=== PATIENT | male | born 1945 | race Caucasian/White ===

== ENCOUNTER 2019-08-25 05:29 | Inpatient (IN) | payer MEDICARE ==
--- NOTE | 2019-08-22 14:00 | HP ---
HISTORY AND PHYSICAL: DATE OF ADMISSION/SURGERY: 08/25/19 PROVIDER: Dr. Dianelys Varma.* (DICTATED BY ALIRIO HERNANDEZ) HISTORY OF PRESENT ILLNESS: Mr. Downey is a 74-year-old gentleman, who has had left hip pain over the past several years. For the last year, it has gotten worse and is now daily 6/10 throbbing pain in the hip. He has anterior groin pain also. He had his right hip replaced over 20 years ago and this one is doing well. He states he has trouble with ambulating more than a block. He has tried to use a cane as well as physical therapy, home exercise and pain medication without help. He would like to proceed with a left total hip arthroplasty at this point. PAST MEDICAL HISTORY: 1. Osteoarthritis. 2. Hypothyroidism. 3. Anemia. PAST SURGICAL HISTORY: 1. Right total hip arthroplasty in 1996. 2. Left total knee arthroplasty in 2016. 3. Eye surgery, unspecified type. 4. Appendectomy. 5. Hernia repair x2. 6. Bone chip removed from the right knee in 1989. MEDICATIONS: 1. Zoë. 2. Amoxicillin. 3. Iron 325. 4. Levothyroxine 50 mcg. ALLERGIES: No known drug allergies. SOCIAL HISTORY: The patient lives with his . 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 He denies any tobacco, alcohol, or recreational drug use. He is an independent ambulator normally, but uses a cane for the past few nights. REVIEW OF SYSTEMS: General: The patient denies any fevers, chills, or night sweats. No known anesthesia problems. HEENT: The patient denies any headaches , lightheadedness, or syncopal episodes. Cardiothoracic: The patient denies any chest pain or heart palpitations. Pulmonary: The patient denies any shortness of breath or chronic cough. GI: The patient denies any nausea, vomiting, diarrhea, or constipation. : The patient denies any nocturia, urinary frequency, or urgency. MSK: The patient denies any intermittent back pain or fractures. Neuro: The patient denies any paresthesias, numbness, or seizures. Integument: The patient denies any abrasions, lesions, rashes, lumps , or open sores. PHYSICAL EXAMINATION GENERAL: The patient is alert and oriented x3. Appropriate mood and affect. Appropriate dress and hygiene. Antalgic gait. HEENT: Normocephalic, atraumatic. Hearing and vision are grossly intact. PULMONARY: Lungs are clear to auscultation bilaterally with no wheezes, rales, or rhonchi. CARDIO: Regular rate and rhythm. Normal S1 and S2. No murmurs, rubs, or gallops. MUSCULOSKELETAL: Left lower extremity: Inspection of the left hip reveals no erythema or ecchymosis. Skin is warm, dry, and intact. Range of motion of the hip is 80 degrees of flexion with severe groin pain. 20 degrees from neutral and no internal rotation. He has negative log roll, negative straight leg raise. Full sensation intact to light touch with a 2+ DP pulse. IMPRESSION: Left hip severe end-stage osteoarthritis. PLAN: 1. To the OR for a left total hip arthroplasty to be performed by Dr. Dianelys Varma on 08/25/19. 2. The patient is to follow up 10 to 14 days postop for suture removal and followup. 3. The risks and complications of surgery were reviewed with the patient and he understood these. A signed consent was obtained and placed in the chart. ALIRIO HERNANDEZ [id number]/ROSEMARY #: [id number] ALAINA
[~2019-08-25 05:29] MED LIST: Buffered Lidocaine 1% SYRIN* 1 ML/SYRINGE INTRADERM ONE; Tranexamic Acid 1,000 MG in NS 0.9% 50 ML* (outpatient use) IV SCH
--- OUTSIDE RECORDS SUMMARY | 2019-08-25 05:31 | XMS REPORT | Continuity of Care Document ---
:1945 External Reference #:[id number] Author Name Dianelys Varma M.D. 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 Onset: 11/24/2012 Arthroplasty of knee Dianelys Varma M.D. Onset: 07/22/2019 Prosthetic arthroplasty of the hip Dianelys Varma M.D. Onset: 07/22/2019 Localized, primary osteoarthritis of the Dianelys Varma M.D. Onset: 07/22/2019 pelvic region and thigh Localized, primary osteoarthritis Dianelys Varma M.D. Onset: 07/22/2019 Social History Type Date Description Comments Sex Unknown ETOH Use Denies alcohol use Tobacco Use Start: Unknown Patient has never smoked Smoking Status Reviewed: 08/17/19 Patient has never smoked Exercise Type/Frequency Exercises sporadically Allergies, Adverse Reactions, Alerts Description No Known Drug Allergies Medications Active Medications SIG Qnty Indications Ordering Provider Date Zoë 1 po qd prn 30tabs Unknown 180mg Tablets Amoxicillin 4 tablets 1 hour 16caps Unknown 500mg before dental Capsules work Iron 1 by mouth every Unknown 325(65Fe) mg Tablets day Levothyroxine Sodium 1 by mouth every Unknown day 50mcg Tablets Immunizations Description No Information Available Vital Signs Date Vital Result Comment 08/17/2019 10:04am Height 68 inches 5'8" Weight 189.00 lb Heart Rate 77 /min BP Systolic 130 mmHg BP Diastolic 72 mmHg Respiratory Rate 16 /min Body Temperature 98.5 F Pain Level 4 BMI (Body Mass Index) 28.7 kg/m2 07/22/2019 2:21pm Height 68 inches 5'8" Weight 187.00 lb BP Systolic 142 mmHg BP Diastolic 90 mmHg Respiratory Rate 18 /min Body Temperature 98.5 F Pain Level 6 BMI (Body Mass Index) 28.4 kg/m2 Results Test Date Facility Test Result H/L Range Note CBC No Diff 08/17/2019 [facility] White Blood 7.8 10^3/uL Normal 3.5-10.[address] [place] [address] [phone] Red Blood Count 4.71 10^6/uL Normal 4.18-5.48 Hemoglobin 13.3 g/dL Low 14.0-18.0 Hematocrit 40 % Low 42-52 Mean Corpuscular Volume 85 fL Normal 80-94 Mean Corpuscular Hemoglobin 28 pg Normal 27-31 Mean Corpuscular HGB Conc 33 g/dL Normal 31-36 Red Cell Distribution Width 15 % Normal 10-15 Platelet Count 295 10^3/uL Normal 150-450 Mean Platelet Volume 8.2 fL Normal 7.4-10.4 1 AA 08/25 Procedures Description No Information Available Medical Devices Description No Information Available Encounters Type Date Location Provider Dx Diagnosis Office Visit 07/22/2019 [facility] Dianelys Varma, M25.561 Pain in right 1:45p at [place] knee M25.461 Effusion, right knee M17.11 Unilateral primary osteoarthritis, right knee M25.552 Pain in left hip M16.12 Unilateral primary osteoarthritis, left hip Z96.641 Presence of right artificial hip joint Z96.652 Presence of left artificial knee joint Assessments Date Code Description Provider 07/22/2019 M25.561 Pain in right knee Dianelys Varma M.D. 07/22/2019 M25.461 Effusion, right knee Dianelys Varma M.D. 07/22/2019 M17.11 Unilateral primary osteoarthritis, right knee Dianelys Varma M.D. 07/22/2019 M25.552 Pain in left hip Dianelys Varma M.D. 07/22/2019 M16.12 Unilateral primary osteoarthritis, left hip Dianelys Varma M.D. 07/22/2019 Z96.641 Presence of right artificial hip joint Dianelys Varma M.D. 07/22/2019 Z96.652 Presence of left artificial knee joint Dianelys Varma M.D. Plan of Treatment Future Appointment(s):09/09/2019 8:45 am - [facility]/2019 7:45 am - Shashank Smith PA-C at [facility] at Mqvpgz1108/25/2019 7:45 am - ALIRIO Teague at [facility] at Hshimy2108/25/2019 7:45 am - Dianelys Varma M.D. at [facility] Functional Status Description No Information Available Mental Status Description No Information Available Referrals Description No Information Available
--- OUTSIDE RECORDS SUMMARY | 2019-08-25 05:31 | XMS REPORT | Continuity of Care Document ---
:1945 External Reference #:[id number] Author Name Dianelys Varma M.D. 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/25/2019 7:45 am - Shashank Smith PA-C at [facility] at Pdblqr3508/25/2019 7:45 am - ALIRIO Teague at [facility] at Rjwbwi7608/25/2019 7:45 am - Dianelys Varma M.D. at [facility] Functional Status Description No Information Available Mental Status Description No Information Available Referrals Description No Information Available
--- OUTSIDE RECORDS SUMMARY | 2019-08-25 05:31 | XMS REPORT | Continuity of Care Document ---
:1945 External Reference #:[id number] Author Name Dianelys Varma M.D. 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 Problems Provider Date Syncope and [...] Patient has never smoked Smoking Status Reviewed: 07/22/19 Patient has never smoked Exercise Type/Frequency Exercises [...] Available Vital Signs Date Vital Result Comment 07/22/2019 2:21pm Height 68 inches 5'8" Weight 187.00 lb BP Systolic 142 mmHg BP Diastolic 90 mmHg Respiratory Rate 18 /min Body Temperature 98.5 F Pain Level 6 BMI (Body Mass Index) 28.4 kg/m2 11/24/2012 10:12am Height 68 inches 5'8" Weight 194.75 lb Heart Rate 68 /min Regular BP Systolic Sitting 150 mmHg BP Diastolic Sitting 94 mmHg BMI (Body Mass Index) 29.6 kg/m2 Results Description No Information Available Procedures Description No Information Available Medical Devices Description No Information Available Encounters Description No Information Available Assessments Date Code Description Provider 07/22/2019 M25.561 [...] joint Dianelys Varma M.D. Plan of Treatment 07/22/2019 - Dianelys Varma M.D.M25.561 Pain in right kneeNew Xrays:Knee 3 Views RT, Ordered: 07/22/19Follow up:Follow up: 7-10 days before yeoumgaH34.461 Effusion, right kneeM17.11 Unilateral primary osteoarthritis, right kneeM25.552 Pain in left hipNew Xrays:Hip Left 2 Views And Pelvis [address], Ordered: M16.12 Unilateral primary osteoarthritis, left hipZ96.641 Presence of right artificial hip xyxcnK19.652 Presence of left artificial knee joint Functional Status Description No Information Available Mental Status Description No Information Available Referrals Description No Information Available
--- OUTSIDE RECORDS SUMMARY | 2019-08-25 05:31 | XMS REPORT | Continuity of Care Document ---
:1945 External Reference #:[id number] Author Name Jovani Donohue M.D. 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4 Comp Metabolic 08/17/2019 [facility] Sodium 137 mmol/L Normal 135-[address] [place] [address] [phone] Potassium 4.5 mmol/L Normal 3.5-5.0 Chloride 101 mmol/L Normal 101-111 Co2 Carbon Dioxide 28 mmol/L Normal 22-32 Anion Gap 8 mmol/L Normal 2-11 Glucose 82 mg/dL Normal 70-100 Blood Urea Nitrogen 15 mg/dL Normal 6-24 Creatinine 0.97 mg/dL Normal 0.67-1.17 BUN/Creatinine Ratio 15.5 Normal 8-20 Calcium 9.3 mg/dL Normal 8.6-10.3 Total Protein 7.4 g/dL Normal 6.4-8.9 Albumin 4.5 g/dL Normal 3.2-5.2 Globulin 2.9 g/dL Normal 2-4 Albumin/Globulin Ratio 1.6 Normal 1-3 Total Bilirubin 0.50 mg/dL Normal 0.2-1.0 Alkaline Phosphatase 85 U/L Normal 34-104 Alt 19 U/L Normal 7-52 Ast 17 U/L Normal 13-39 Egfr Non- 75.5 >60 Egfr 91.3 >60 2 Lipid Profile 08/17/2019 [facility] Triglycerides 325 mg/dL 3 (Trig/Chol/HDL) [address] [place] [address] [phone] Cholesterol 191 mg/dL 4 HDL Cholesterol 35.6 mg/dL 5 LDL Cholesterol 90 mg/dL 6 Laboratory 08/17/2019 [facility] TSH (Thyroid 4.58 Normal 0.34 -5.60 7 test finding [address] Stim Horm) mcIU/[place] [address] [phone] Free T4 (Free Thyroxine) 0.70 ng/dL Normal 0.61-1.12 8 1 08/25 2 Because ethnic data is not always readily available, this report includes an eGFR for both -Americans and non- Americans. The National Kidney Disease Education Program (NKDEP) does not endorse the use of the MDRD equation for patients that are not between the ages of 18 and 70, are , have extremes of body size, muscle mass, or nutritional status, or are non- or non-. According to the National Kidney Foundation, irrespective of diagnosis, the stage of the disease is based on the level of kidney function: Stage Description GFR(mL/min/1.73 m(2)) 1 Kidney damage with normal or decreased GFR 90 2 Kidney damage with mild decrease in GFR 60-89 3 Moderate decrease in GFR 30-59 4 Severe decrease in GFR 15-29 5 Kidney failure <15 (or dialysis) 3 Desirable: <150 Borderline High: 150-199 High: 200-499 Very High: >500 4 Desirable: <200 Borderline High: 200-239 High: >239 5 Low: <40 Desirable: 40-60 High: >60 6 Desirable: <100 Near Optimal: 100-129 Borderline High: 130-159 High: 160-189 Very High: >189 7 08/25 8 08/25 Procedures Description No Information Available Medical Devices Description No Information Available Encounters Type Date Location Provider Dx Diagnosis Office Visit 07/22/2019 [facility] Dianelys Varma, M25.561 [facility] Effusion, right knee M17.11 Unilateral [...] M.D. 07/22/2019 M25.552 Pain in left hip Dianelyslisa Varma M.D. 07/22/2019 M16.12 Unilateral primary osteoarthritis, left hip Dianelys Varma M.D. 07/22/2019 Z96.641 Presence of right artificial hip joint Dianelys Varma M.D. 07/22/2019 Z96.652 Presence of left artificial knee joint Dianelys Varma M.D. Plan of Treatment Future Appointment(s):09/09/2019 8:45 am - [facility] 7:45 am - [facility]/25/2019 7:45 am - [facility]/2019 7:45 am - [facility] Functional Status Description No Information Available Mental Status Description No Information Available Referrals Description No Information Available
--- OUTSIDE RECORDS SUMMARY | 2019-08-25 05:31 | XMS REPORT | Continuity of Care Document ---
:1945 External Reference #:[id number] Author Name Luiz Adamson M.D. Address [address] [place] [address] Care Team Providers Name Role Phone Elizabeth Davey - Cardiovascular Care Team Information Saw Setter [phone] [facility] - Care Team Information Saw Setter [phone] Gastroenterology Luiz Adamson MD - Family Medicine Care Team Information Saw Setter [phone] Problems Active Problems Provider Date Benign prostatic hypertrophy without outflow Luiz Adamson M.D. Onset: obstruction Family history of ischemic heart disease Luiz Adamson M.D. Onset: 2010 Hypothyroidism Luiz Adamson M.D. Onset: 09/14/2014 Anemia Luiz Adamson M.D. Onset: 09/14/2014 Mixed hyperlipidemia Luiz Adamson M.D. Onset: 03/20/2015 Immunization Luiz Adamson M.D. Onset: 12/04/2016 Edema Luiz Adamson M.D. Onset: 02/10/2017 Palpitations Luiz Adamson M.D. Onset: 02/10/2017 Degenerative joint disease involving Luiz Adamson M.D. Onset: 12/01/2017 multiple joints Encounter for other preprocedural Luiz Adamson M.D. Onset: 08/04/2019 examination Social History Type Date Description Comments Sex Unknown Tobacco Use Start: Unknown Nonsmoker ETOH Use Denies alcohol use Tobacco Use Start: Unknown Patient has never smoked Smoking Status Reviewed: 11/23/17 Patient has never smoked Allergies, Adverse Reactions, Alerts Description No Known Drug Allergies Medications Active Medications SIG Qnty Indications Ordering Provider Date Synthroid Take 1 Tablet By 90tabs Luiz AishaIsha Vikramken, 09/14/2014 50mcg Tablets Mouth Every Day M.Lester Zoë Take 1 Tablet By 30tabs Rebecca Ibarra, 04/03/2006 180mg Tabs Mouth Daily prn Afnp-C Iron Supplement 1 by mouth once Luiz F. Snow, a day M.D. 325(65Fe) mg Tablets Ventolin HFA 2 puffs every 4 Luiz F. Shallish, hours as needed M.D. 108(90Base) mcg/Act Aerosol Immunizations CPT Code Status Date Vaccine Lot # [id number] Given 08/01/2019 Influenza Vac, Quadriv[place], [place] [address] Given 08/05/2018 High-Dose, Influenza Virus Vacccine-fluzone 65 and [id number] older 40106 Given 12/04/2016 Tdap Tetanus, W Pertussis [id number] 82744 Given 09/20/2015 Pneumococcal Conjugate Vacc-13 [id number] 38106 Given 09/20/2015 High-Dose, Influenza Virus Vacccine-fluzone 65 and [id number] older 46782 Given 09/14/2014 High-Dose, Influenza Virus Vacccine-fluzone 65 and [id number] older [id number] Given 11/02/2012 Split Influenza Medicare: Fluvirin 26498 Given 11/02/2012 DO Not Use Split Influenza Virus Vaccine [id number] 02127 Given 10/23/2011 Pneumococcal Immunization [id number] 97276 Given 07/14/2011 Tetanus And Diptheria Adult Preservative Free [id number] >7Yrs 64384 Given 09/23/2008 DO Not Use Split Influenza Virus Vaccine [id number] 58504 Given 10/04/2007 DO Not Use Split Influenza Virus Vaccine [id number] 98148 Given 09/22/2006 DO Not Use Split Influenza Virus Vaccine 67259 Given 05/20/2003 Td Immunization, For Use In Individuals 7 Years Or Older 89289 Given 05/20/2003 DT Immunization Vital Signs Date Vital Result Comment 08/04/2019 8:20am BP Systolic 126 mmHg BP Diastolic 76 mmHg Heart Rate 72 /min Body Temperature 97.9 F Respiratory Rate 16 /min Height 66 inches 5'6" Weight 189.00 lb BMI (Body Mass Index) 30.5 kg/m2 01/27/2019 9:47am BP Systolic 122 mmHg BP Diastolic 78 mmHg Heart Rate 68 /min Body Temperature 97.9 F Respiratory Rate 16 /min Height 66 inches 5'6" Weight 194.00 lb BMI (Body Mass Index) 31.3 kg/m2 Results Test Date Facility Test Result H/L Range Note Ict-Hemoccult 08/01/2019 [facility] Ict Hemoccult 07/28/19 Neg. (MCR)Fma (607)- - (1) Screeni Ict Hemoccult-(2) 07/29/19 Neg. Ict-Hemoccult (3) 07/30/19 Neg. Procedures Date Code Description Status 02/01/2014 [id number] Colonoscopy Completed Medical Devices Description No Information Available Encounters Description No Information Available Assessments Date Code Description Provider 08/04/2019 E03.9 Hypothyroidism, unspecified Luiz Adamson M.D. 08/04/2019 M15.0 Primary generalized (osteo)arthritis Luiz Adamson M.D. 08/04/2019 Z01.818 Encounter for other preprocedural Luiz Adamson M.D. examination 08/01/2019 Z12.11 Encounter for screening for malignant Luiz Adamson M.D. neoplasm of colon 08/01/2019 Z12.12 Encounter for screening for malignant Luiz Admason M.D. neoplasm of rectum Plan of Treatment 08/04/2019 - Luiz Adamson M.D.E03.9 Hypothyroidism, unspecifiedNew Labs: TSH ([facility]), Ordered: 08/04/19Free T4 ([facility]), Ordered: Comments:continue present medication , recheck thyroid lab workFollow up: Followup:. (Follow up)M15.0 Primary generalized (osteo)arthritisNew Labs:CBC Electronic-[facility], Ordered: 08/04/19Lipid Panel And Chol/HDL Ratio, Ordered: 08/04/19Comp Metabolic-[facility], Ordered: 08/04/19Comments:I feel he is medically clear for the planned left hip replacement by Dr Malik01.818 Encounter for other preprocedural examinationAllFollow up:return to office for cpe in spring Functional Status Description No Information Available Mental Status Description No Information Available Referrals Description No Information Available
--- OUTSIDE RECORDS SUMMARY | 2019-08-25 05:31 | XMS REPORT | Continuity of Care Document ---
:1945 External Reference #:[id number] Author Name Dianelys Varma M.D. 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 Room Clerk [phone] Problems Active Problems Provider Date Syncope and [...] H/L Range Note CBC No Diff 08/17/2019 [facility] White Blood 7.8 10^3/uL Normal 3.5-10.[address] [place] [address] [phone] Red Blood Count 4.71 10^6/uL Normal 4.18-5.48 Hemoglobin 13.3 g/dL Low 14.0-18.0 Hematocrit 40 % Low 42-52 Mean Corpuscular Volume 85 fL Normal 80-94 Mean Corpuscular Hemoglobin 28 pg Normal 27-31 Mean Corpuscular HGB Conc 33 g/dL Normal 31-36 Red Cell Distribution Width 15 % Normal 10-15 Platelet Count 295 10^3/uL Normal 150-450 Mean Platelet Volume 8.2 fL Normal 7.4-10.4 Comp Metabolic 08/17/2019 [facility] Sodium 137 mmol/L Normal 135-[address] [place] [address] [phone] Potassium 4.5 mmol/L Normal 3.5-5.0 Chloride 101 [...] Egfr 91.3 >60 2 Lipid Profile 08/17/2019 [facility] Triglycerides 325 mg/dL 3 (Trig/Chol/HDL) [address] [place] [address] [phone] Cholesterol 191 mg/dL 4 HDL Cholesterol 35.6 mg/dL 5 LDL Cholesterol 90 mg/dL 6 Laboratory 08/17/2019 [facility] TSH (Thyroid 4.58 Normal 0.34 -5.60 7 test finding [address] Stim Horm) mcIU/[place] [address] [phone] Free T4 (Free Thyroxine) 0.70 ng/dL Normal [...] Location Provider Dx Diagnosis Office Visit 07/22/2019 [facility] Dianelys Varma, M25.561 Pain in right 1:45p at [place] Desiree knee M25.461 Effusion, right knee M17.11 [...] 07/22/2019 M17.11 Unilateral primary osteoarthritis, right knee Dianelyslisa Varma M.D. 07/22/2019 M25.552 Pain in left hip Dianelys Varma M.D. 07/22/2019 M16.12 Unilateral primary osteoarthritis, left hip Dianelys Varma M.D. 07/22/2019 Z96.641 Presence of right artificial hip joint Dianelys Varma M.D. 07/22/2019 Z96.652 Presence of left artificial knee joint Dianelys Varma M.D. Plan of Treatment Future Appointment(s):09/09/2019 8:45 am - Dianelys Varma M.D. at [facility]08/25/2019 7:45 am - hSashank Smith PA-C at [facility]08/25/2019 7:45 am - ALIRIO Teague at [facility]08/25/2019 7:45 am - [facility] Functional Status Description No Information Available Mental Status Description No Information Available Referrals Description No Information Available
[2019-08-25] MEDS ORDERED: Dexamethasone IV* 4 MG/ML 1 ML (4 MG) IV SLOW PU ONE (06:00)
[2019-08-25] MEDS ORDERED: Gabapentin CAP(*) 300 MG PO ONE (06:00)
[2019-08-25] MEDS ORDERED: Lactated Ringers 1000 ML Bag* 1,000 ML IV SCH (06:00)
[2019-08-25] MEDS ORDERED: Famotidine IV* 10 MG/ML 2 ML (20 mg) IV ONE (06:00)
[2019-08-25] MEDS ORDERED: celeCOXIB CAP* 200 MG PO ONE (06:00)
[2019-08-25] MEDS ORDERED: Dexamethasone IV* 4 MG/ML 1 ML (4 MG) ONE (06:10)
[2019-08-25] MEDS ORDERED: Famotidine IV* 10 MG/ML 2 ML (20 mg) ONE (06:10)
[2019-08-25] MEDS ORDERED: celeCOXIB CAP* 200 MG ONE (06:10)
[2019-08-25] MEDS ORDERED: Gabapentin CAP(*) 300 MG ONE (06:10)
[2019-08-25] MEDS ORDERED: ceFAZolin 2 GM in NS PREMIX(*) 2 GM/100 ML BAG IVPB ONE (06:11)
[2019-08-25 07:00] LABS: INR 0.99 (0.82-1.09)
[2019-08-25] MEDS ORDERED: KETAMINE HCL* 50 MG/ML 10 ML VIAL ONE (07:15)
[2019-08-25] MEDS ORDERED: Midazolam* 1 MG/ML 5 ML VIAL (5 MG) ONE (07:16)
[2019-08-25] MEDS ORDERED: Ondansetron INJ* 2 MG/ML VIAL IV PRN ×2 (07:30→09:07)
[2019-08-25] MEDS ORDERED: HYDROmorphone INJ1* 1 MG/ML SYRINGE IV PRN (07:30)
[2019-08-25] MEDS ORDERED: Naloxone* 0.4 MG/ML 1 ML VIAL IV PRN (07:30)
[2019-08-25] MEDS ORDERED: Phenylephrine 10 MG/ML VIAL* 1 ML VIAL ONE (08:23)
[2019-08-25] MEDS ORDERED: Bupivacaine 0.5% SDV PF* 30ML VIAL ONE (08:49)
[2019-08-25] MEDS ORDERED: Propofol* 10 MG/ML 20 ML BTL ONE ×2 (08:50→09:47)
[2019-08-25] MEDS ORDERED: EPHEDrine (Pressors)* 50 MG/ML VIAL ONE (09:04)
[2019-08-25] MEDS ORDERED: Ondansetron TAB* 4 MG PO PRN (09:07)
[2019-08-25] MEDS ORDERED: diPHENhydraMINE PO* 25 MG PO PRN (09:07)
[2019-08-25] MEDS ORDERED: Ondansetron ODT TAB* 4 MG PO PRN (09:07)
[2019-08-25] MEDS ORDERED: traMADol TAB* 50 MG PO PRN (09:07)
[2019-08-25] MEDS ORDERED: oxyCODONE TAB* 5 MG TAB PO PRN (09:07)
[2019-08-25] MEDS ORDERED: Cyclobenzaprine TAB* 10 MG PO PRN (09:07)
[2019-08-25] MEDS ORDERED: Morphine INJ* 2 MG/ML 1 ML SYRINGE (TWO MG - NEW SYRINGE VERSION) IV PRN (09:07)
[2019-08-25] MEDS ORDERED: Polyethylene Glycol 3350* 17 GM PACKET PO PRN (09:07)
[2019-08-25] MEDS ORDERED: diPHENhydraMINE IV* 50 MG/ML 1 ml VIAL (BENADRYL) IV PRN (09:07)
[2019-08-25] MEDS ORDERED: Magnesium Hydroxide LIQ* 30 ML UDC PO PRN (09:07)
[2019-08-25] MEDS: Lactated Ringers 1000 ML Bag* 1,000 ML IV SCH ×2 (11:53→23:16)
[2019-08-25] MEDS: oxyCODONE/Acetamin 5/325 MG* TAB PO PRN (14:11)
[2019-08-25] MEDS: Acetaminophen TAB* 325 MG PO SCH ×2 (14:12→21:20)
--- NOTE | 2019-08-25 16:06 | OP ---
Operative Report - Blank - Operative Report Date of Operation: 08/25/19 Note: SANTI LOPEZ 1945 Date Of Surgery: 08/25/19 Dianelys Varma MD Wreath Maker: Althea AMEZQUITA did help throughout the procedure with preparation of the hip, wound retraction, manipulation of the hip, and wound closure. Anesthesiologist: Dr. Hicks Anesthesia Type: Spinal Preoperative Diagnosis: Left severe degenerative osteoarthritis of the hip Postoperative Diagnosis: As above Procedure Performed: Left Total Hip Arthroplasty Complications: None Specimen: Femoral head and acetabular reamings sent to pathology. Hardware used: This is uncemented Carine total hip arthroplasty hardware for the femur a size 8 accolade Ii with 127 neck angle femoral component, for the acetabulum a size 52E trident II tritanium cluster hole shell, for the insert a size 36E trident X3 polyethylene insert, and for the femoral head a size 36 - 2.5 ceramic V40 femoral head. Brief history/Indication: SANTI LOPEZ was known in clinic and had a history of severe left hip pain. He failed conservative treatment with anti-inflammatories , pain pills, intra-articular injections and physical therapy. He elected to undergo left total hip arthroplasty due to continued pain and decreased quality of life. Radiographs showed severe end stage osteoarthritis of the hip with bone on bone contact. Informed consent was obtained from the patient. He understood the risks of surgery included but were not limited to: bleeding, infection, damage to nearby structures, intraoperative fracture, nerve palsy, failure of the hardware, early loosening, stiffness or loss of motion, dislocation, leg length discrepancy, anesthesia complications, stroke, heart attack, blood clot and . He wished to proceed. Intra-Operative findings: Intraoperatively the patient was noted to have severe loss of cartilage of the acetabulum and femoral head. Description of the Procedure: SANTI LOPEZ was identified in the preanesthesia unit. His left hip was marked as the correct operative side. Informed consent was signed and placed in the chart. The patient was taken to the operating room and placed under anesthesia without complication. A barnett catheter was placed. The patient was placed on the peg board with all bony prominences well padded. The left lower extremity was prepped and draped in the usual sterile fashion. Preoperative time-out was made to correctly identify the patient, side and site. Appropriate intraoperative antibiotics were given within one hour of incision. A standard posterior incision was made and carried sharply down to the lateral fascia. A new 10 blade was used to make an incision in the fascia in line with the skin incision. A charnley retractor was placed. The piriformis and conjoined tendons were identified and elevated off the posterolateral femur using electrocautery. These were tagged with number 5 Ethibond. Next electrocautery was used to make a posterolateral capsular flap and this was tagged with number 5 Ethibonds. The hip was carefully dislocated. Lesser trochanter to the center of the femoral head was measured at 65 mm. The oscillating saw was used to make the femoral neck cut. The femoral head was carefully removed. The femur was retracted anteriorly and the acetabular retractors were placed. Long-handled knife was used to sharply remove any remaining labrum from the acetabular rim. The acetabulum was sequentially reamed up to a size 52. A bleeding subchondral bone bed was obtained. A trial liner was placed and had excellent fit and stability. A 52E cup with a 20 mm and 15 mm screw was placed and had excellent stability with appropriate anteversion and abduction angle. A size 36 E polyethylene liner was impacted into the acetabular shell. The liner was checked for stability and was stable. Next attention was turned to preparation of the femoral canal. A canal finder was used to enter the proximal femur. The femoral canal was sequentially broached up to a size 8 femoral broach trial. A trial neck and 36 - 2.5 trial femoral head was chosen. Lesser trochanter to center of the femoral head measurement was satisfactory. The hip was reduced and taken through a range of motion. The hip was stable in all positions with good soft tissue tension and appropriate leg lengths. The hip was dislocated and all trials were removed. The final implant chosen was a accolade II size 8 with 127 neck angle. This stem was impacted into the femoral canal without difficulty. The stem was stable with appropriate anteversion. The femoral head chosen was a 36 - 2.5 ceramic head. The head was impacted onto the femoral neck without difficulty. The final lesser trochanter to center of the femoral head measurement was satisfactory. The hip was reduced and taken through a range of motion. The hip was stable in all positions with good soft tissue tension and appropriate leg lengths. The hip was copiously irrigated with sterile saline. The previously tagged capsule and tendons were repaired to the posterolateral femur through two trochanteric drill holes. The lateral fascia layer was closed using number 1 vicryls. The rest of the incision was closed in a layered fashion using 0 and 2-0 vicryls. The skin was closed using 3-0 monocryl suture and Dermabond. Sterile adaptic, 4x4s and paper tape was used to cover the incision. The patients anesthesia was reversed without difficulty. He was taken to the PACU in stable condition. Intended weight-bearing will be as tolerated with posterior hip precautions.
--- NOTE | 2019-08-25 16:23 | PN ---
Progress Note - Progress Note Date of Service: 08/25/19 SOAP: Subjective: [Pt was seen today sitting up in chair. States he feels well. Pain is well controlled with percocet. He states that he was able to get up and walk to the bathroom with PT today. He denies any shortness of breath, chest pain. ] Objective: [Doing well. Appropriate mood, affect, dress and hygiene. +df/pf. Dressing c/d/i] Vital Signs Temp 97.6 F 08/25/19 14:18 Pulse 89 08/25/19 14:18 Resp 18 08/25/19 15:24 BP 154/77 08/25/19 14:18 Pulse Ox 99 08/25/19 14:18 Intake & Output 08/24/19 08/25/19 08/25/19 18:59 06:59 18:59 Intake Total 1490 Output Total 400 Balance 1090 Weight 190 lb Intake: IV Fluids 1350 LR 1350 Oral 140 Output: Urine 400 Assessment: [POD 0 LTHA ] Plan: [Start post op abx PT to continue tomorrow Percocet for pain management. ]
[2019-08-25] MEDS: ceFAZolin 1 GM ADVAN(*) 1 GM in NS 0.9% 50 ML* 50 ML IVPB SCH (17:55)
[2019-08-25] MEDS: Magnesium Hydroxide LIQ* 30 ML UDC PO SCH (21:17)
[2019-08-25] MEDS: Docusate CAP* 100 MG PO SCH (21:18)
[2019-08-26] MEDS: ceFAZolin 1 GM ADVAN(*) 1 GM in NS 0.9% 50 ML* 50 ML IVPB SCH ×2 (00:30→08:02)
[2019-08-26] MEDS ORDERED: Levothyroxine TAB* 50 MCG TAB PO SCH (06:00)
[2019-08-26] MEDS: oxyCODONE/Acetamin 5/325 MG* TAB PO PRN ×2 (06:05→11:28)
[2019-08-26] MEDS: Acetaminophen TAB* 325 MG PO SCH ×2 (06:23→14:18)
[2019-08-26 06:54] LABS: Hematocrit 33 % (42-52); Hemoglobin 11.2 g/dL (14.0-18.0); Mean Platelet Volume 7.7 fL (7.4-10.4); Platelet Count 223 10^3/uL (150-450)
[2019-08-26 07:09] LABS: BUN/Creatinine Ratio 18.4 (8-20); Calcium 8.6 mg/dL (8.6-10.3); Potassium 4.7 mmol/L (3.5-5.0)
[2019-08-26] MEDS: Magnesium Hydroxide LIQ* 30 ML UDC PO SCH (08:02)
[2019-08-26] MEDS: Docusate CAP* 100 MG PO SCH (08:02)
[2019-08-26] MEDS ORDERED: Apixaban* 2.5 MG TAB PO SCH (09:00)
[2019-08-26] MEDS ORDERED: Vitamin THERAPEUTIC TAB PO SCH (09:00)
--- NOTE | 2019-08-26 11:45 | PN ---
Progress Note - Progress Note Date of Service: 08/26/19 SOAP: Subjective: Pt was seen today sitting up in chair. States he feels well. Pain is well controlled with percocet. He states that he did well with PT today. He denies any shortness of breath, chest pain. ] Objective: [Doing well. Appropriate mood, affect, dress and hygiene. +df/pf. Dressing c/d/i, dressing changed today. Incision is c/d/i with no erythema or discharge. Calf is soft and non tender. NVI. ] Vital Signs Temp 97.8 F 08/26/19 08:16 Pulse 68 08/26/19 08:16 Resp 18 08/26/19 11:28 BP 126/72 08/26/19 08:16 Pulse Ox 98 08/26/19 08:16 Intake & Output 08/25/19 08/26/19 08/26/19 18:59 06:59 18:59 Intake Total 1490 1530 1060 Output Total 400 2700 Balance 1090 -1170 1060 Intake: IV Fluids 9591 709 4523 LR 4809 521 8191 IVPB 50 50 ABX - CEFAZOLIN 50 50 Oral 140 500 Output: Urine 400 Pollard 2700 Assessment: [POD 1 LTHA ] Plan: [Continue post op abx PT to continue Percocet for pain management. DC home today
--- NOTE | 2019-08-26 11:47 | DS ---
Orthopedic Discharge Summary - Discharge Summary Date of Admission:08/25/19 Date of Discharge: 08/26/19 Date of Surgery: 08/25/19 Attending Orthopedic Provider: Dr. Varma Pre-operative Diagnosis: Left hip osteoarthritis Operative Procedure: Left total hip replacement Disposition of Patient: Home Condition of Patient: Good History: SANTI LOPEZ is a 74 year old M with years of increasingly severe left hip pain. Patient has failed conservative management and has elected to undergo a left total hip replacement Hospital Course: SANTI was admitted to [facility] on 08/25/19. Patient underwent a left total hip replacement without complication followed by a brief recovery in PACU and transfer to the Short Stay Surgical Unit in stable condition. Our hospitalist service, physical therapy and occupational therapy also participated in this patients care. Post-op day 1: patient was alert and in no acute distress. Dressing was clean, dry and intact. Dressing changed. Operative extremity dorsiflexion and plantarflexion intact, sensation intact to light touch distally, DP2+. Patient was deemed to be medically and orthopedically stable for discharge. Physical therapy goals were met. Home Medications Medication Instructions Recorded Confirmed Type Fexofenadine (NF) [Zoë 180 180 mg PO QAM PRN 12/29/13 08/25/19 History (NF)] Levothyroxine TAB* [Synthroid 25 50 mcg PO 0800 12/29/13 08/25/19 History MCG TAB*] Discharge Instructions following Orthopedic Surgery: Discharge Home Activity: * Weight Bearing as tolerated * Continue physical therapy and occupational therapy exercises as shown Hip replacements: Continue Hip Precautions- do not cross legs or bend greater than 90 degrees/squat Wound care: * OK to shower on post-op day 3, no bathing, swimming, or submerging wound. * Use gentle soap, pat dry. Cover with gauze, WILLIAM wrap or tape. * Visiting home nurse to do wound checks. Call Orthopedic office for: * Increased drainage * Redness * Increased pain * Fever Go to ER with shortness of breath or chest pain. Diet: * Regular diet * Increase fluids and fiber to prevent constipation. * Continue to use stool softeners, call office if no bowel motion within 48 hours. Medications See Home Medication List in your packet for medications that you should take after discharge. DVT Prophylaxis: Eliquis Dosin.5 mg, 1 tab every 12 hours x 30 days Pain Control: Percocet Dosin/325 mg 1-2 tabs by mouth every 4-6 hours as needed for pain. Maximum of 10 tabs per day. Please note that Percocet contains Tylenol (acetaminophen). Maximum daily dose of Tylenol is 4000 mg from all sources. Medications sent to [facility] Antibiotics are required prior to any dental work. FOLLOW UP: Follow up with Dr. Mcarthur] Within 10-14 days, call for appointment Please call our office with any questions or concerns ([phone])
[2019-08-26 12:01] VITALS: BP 135/65
[2019-08-27] MEDS ORDERED: Bisacodyl SUPP* 10 MG SUPP PR PRN (09:07)
== END 2019-08-26 14:40 | disposition home health service (06) | DRG 470 ==
LOC: AA 05:29 → SSU 11:48
PROVIDERS: ADMIT Orthopaedic Surgery Adult Reconstructive Orthopaedic Surgery; ATTEND Orthopaedic Surgery Adult Reconstructive Orthopaedic Surgery
PROC: 0SRB04A Replacement of Left Hip Joint with Ceramic on Polyethylene Synthetic Substitute, Uncemented, Open Approach (ICD-10-PCS; principal; 2019-08-25 07:45)
DX: M16.12 Unilateral primary osteoarthritis, left hip (principal); E03.9 Hypothyroidism, unspecified; D64.9 Anemia, unspecified; Z96.641 Presence of right artificial hip joint; Z96.652 Presence of left artificial knee joint; Z79.899 Other long term (current) drug therapy
CPT/HCPCS: 36415; 80048; 85014; 85018; 85049; 85610; 86850; 86900; 86901; 88304; 88311; A9270-GY; C1713; C1776; G8978-GP-CJ; G8979-GP-CI; G8987-GO-CI; G8988-GO-CH; J0690; J1100; J2250; J2704; J3490

== ENCOUNTER 2021-11-10 13:09 | Inpatient (IN) ==
[2021-11-10 13:38] LABS: ABS Eosinophils 0.1 10^3/ul (0-0.6); ABS Lymphocytes 0.7 10^3/ul (1.0-4.8); ABS Monocytes 0.4 10^3/ul (0-0.8); ABS Neutrophils 5.6 10^3/ul (1.5-7.7); Eosinophil % 0.8 %; Hematocrit 40 % (42-52); Hemoglobin 13.3 g/dL (14.0-18.0); Lymphocyte % 10.2 %; Mean Corpuscular HGB Conc 34 g/dL (31-36); Mean Corpuscular Hemoglobin 30 pg (27-31); Mean Corpuscular Volume 88 fL (80-94); Platelet Count 230 10^3/uL (150-450); Red Blood Count 4.52 10^6 /uL (4.18-5.48); Red Cell Distribution Width 14 % (10-15); White Blood Count 6.8 10^3/uL (3.5-10.8)
[2021-11-10 13:44] LABS: INR 1.06 (0.86-1.15)
[2021-11-10 14:02] LABS: ALT 16 U/L (7-52); AST 27 U/L (13-39); Albumin 4.1 g/dL (3.2-5.2); Albumin/Globulin Ratio 1.4 (1-3); Alkaline Phosphatase 66 U/L (35-149); Anion Gap 6 mmol/L (2-11); Blood Urea Nitrogen 16 mg/dL (6-24); CO2 Carbon Dioxide 26 mmol/L (22-32); Calcium 9.3 mg/dL (8.6-10.3); Chloride 101 mmol/L (101-111); Glucose 160 mg/dL (70-100); Potassium 3.9 mmol/L (3.5-5.0); Sodium 133 mmol/L (135-145); Total Protein 7.1 g/dL (6.4-8.9); eGFR CKD-EPI 85.7 (>60)
[2021-11-10 14:22] LABS: Troponin I 0.51 ng/mL (<0.03)
[2021-11-10] MEDS ORDERED: Enoxaparin 100 MG/ML SYR SUBCUT ONE (14:43)
[2021-11-10 16:53] LABS: Troponin I 1.15 ng/mL (<0.03)
[2021-11-10 20:39] LABS: Troponin I 1.66 ng/mL (<0.03)
[2021-11-10 22:58] LABS: Troponin I 2.52 ng/mL (<0.03)
[2021-11-11 01:05] LABS: Troponin I 2.95 ng/mL (<0.03)
[2021-11-11] MEDS ORDERED: Nitroglycerin 0.4 mg/hr PATCH (10 mg) TRANSDERM ONE (02:21)
[2021-11-11 07:05] LABS: Anion Gap 7 mmol/L (2-11); Blood Urea Nitrogen 14 mg/dL (6-24); CO2 Carbon Dioxide 26 mmol/L (22-32); Calcium 8.9 mg/dL (8.6-10.3); Chloride 103 mmol/L (101-111); Glucose 126 mg/dL (70-100); Potassium 4.2 mmol/L (3.5-5.0); Sodium 136 mmol/L (135-145); eGFR CKD-EPI 86.8 (>60)
[2021-11-11 07:16] LABS: Troponin I 4.45 ng/mL (<0.03)
[2021-11-11] MEDS ORDERED: NS 0.9% 1000 ml BAG 1,000 ML IV SCH (09:15)
[2021-11-11] MEDS ORDERED: Heparin 1,000 UNIT/ML 10 ml (10,000 UNITS) CATHLAB/DIALYSIS ONE (10:58)
[2021-11-11] MEDS ORDERED: fentaNYL 100 mcg/2 ml 50 MCG/ML VIAL ONE (10:58)
[2021-11-11] MEDS ORDERED: Midazolam 5 mg/5 ml VIAL 1 mg/ml 5 ml VIAL (5 mg) ONE (10:58)
[2021-11-11] MEDS ORDERED: Iohexol 350 (CONTRAST) 200 ML MDV IV ONE (10:59)
[2021-11-11] MEDS ORDERED: nitroGLYCERIN DRIP 25,000 MCG/250 ML BTL ONE (10:59)
[2021-11-11] MEDS ORDERED: Lidocaine 1% VIAL 10 MG/ML VIAL ONE (10:59)
[2021-11-11] MEDS ORDERED: Heparin 2 UNITS/ML 1000 mls 2,000 ML IV ONE (10:59)
[2021-11-11] MEDS ORDERED: niCARdipine 0.1MG/ML IVPREMIX 20 MG/200 ML BAG IV ONE (11:04)
[2021-11-11 12:08] LABS: Cholesterol 183 mg/dL; HDL Cholesterol 29.7 mg/dL; LDL Cholesterol 80 mg/dL; Triglycerides 367 mg/dL
[2021-11-11] MEDS ORDERED: Heparin DRIP 25,000 UNITS BAG 25,000 UNITS/500 ML BAG IV SCH (12:30)
[2021-11-11] MEDS ORDERED: Heparin 5000 UNITS/ML 1 mL VIAL IV SCH (13:00)
[2021-11-11 14:01] LABS: ABS Lymphocytes 1.1 10^3/ul (1.0-4.8); ABS Monocytes 0.5 10^3/ul (0-0.8); ABS Neutrophils 4.9 10^3/ul (1.5-7.7); Eosinophil % 0.8 %; Hematocrit 39 % (42-52); Hemoglobin 13.1 g/dL (14.0-18.0); Lymphocyte % 16.4 %; Mean Corpuscular HGB Conc 33 g/dL (31-36); Mean Corpuscular Hemoglobin 29 pg (27-31); Mean Corpuscular Volume 88 fL (80-94); Mean Platelet Volume 7.8 fL (7.4-10.4); Platelet Count 219 10^3/uL (150-450); Red Blood Count 4.49 10^6 /uL (4.18-5.48); Red Cell Distribution Width 14 % (10-15); White Blood Count 6.5 10^3/uL (3.5-10.8)
[2021-11-11 14:17] LABS: Blood Urea Nitrogen 13 mg/dL (6-24); eGFR CKD-EPI 89.8 (>60)
[2021-11-11 14:27] LABS: Troponin I 4.24 ng/mL (<0.03)
[2021-11-11] MEDS ORDERED: Nitro Patch Removal Reminder PATCH OFF ONE (14:30)
[2021-11-11 20:50] LABS: Troponin I 3.52 ng/mL (<0.03)
[2021-11-12 03:49] LABS: ABS Eosinophils 0.1 10^3/ul (0-0.6); ABS Lymphocytes 1.3 10^3/ul (1.0-4.8); ABS Monocytes 0.6 10^3/ul (0-0.8); ABS Neutrophils 3.6 10^3/ul (1.5-7.7); Eosinophil % 2.5 %; Hematocrit 37 % (42-52); Hemoglobin 12.5 g/dL (14.0-18.0); Lymphocyte % 23.2 %; Mean Corpuscular HGB Conc 34 g/dL (31-36); Mean Corpuscular Hemoglobin 29 pg (27-31); Mean Corpuscular Volume 86 fL (80-94); Mean Platelet Volume 8.1 fL (7.4-10.4); Platelet Count 191 10^3/uL (150-450); Red Blood Count 4.27 10^6 /uL (4.18-5.48); Red Cell Distribution Width 14 % (10-15); White Blood Count 5.7 10^3/uL (3.5-10.8)
[2021-11-12 07:41] VITALS: BP 141/77
== END 2021-11-12 08:10 | disposition short-term general hospital (02) | DRG 282 ==
LOC: ED 13:09 → SUATTDRO 15:49 → EDHOLD 15:49 → MEDTELE 18:19
PROVIDERS: ADMIT Student in an Organized Health Care Education/Training Program; ATTEND Hospitalist